=== PATIENT | male | born 1960 | race American Indian/Alaskan Native ===

== ENCOUNTER 2018-02-08 06:29 | Outpatient (CLI) | payer OTHER ==
--- NOTE | 2018-02-08 08:03 | Ultrasound Report ---
ULTRASOUND ABDOMEN COMPLETE: TECHNIQUE: Transabdominal ultrasound with color Doppler interrogation. HISTORY: abdominal pain. COMPARISON: none. FINDINGS: LIVER: Normal. BILIARY SYSTEM: Normal. PANCREAS: Normal. SPLEEN: Normal. KIDNEYS: Both kidneys are normal size and position. The renal parenchyma is mildly echogenic suggesting mild nonspecific renal parenchymal disease. 1.5 cm simple cyst is noted at the inferior pole the left kidney. AORTA/IVC: Normal. ASCITES: None. IMPRESSION: Mild nonspecific renal parenchymal disease as described. Simple left renal cyst.
== END 2018-02-08 06:30 | disposition home or self-care (01) ==
LOC: US 06:29
PROVIDERS: ATTEND Internal Medicine
DX: N28.1 Cyst of kidney, acquired (principal)
CPT/HCPCS: 76700